=== PATIENT | male | born 1995 | race Caucasian/White ===

== ENCOUNTER 2025-01-09 08:16 | Outpatient (AMB) | payer OTHER, SELFPAY ==
--- OUTSIDE RECORDS SUMMARY | 2025-01-09 09:05 | XMS_ITS | Clinical Summary ---
Author Organization [facility] Address [address] [place] [id number] Care Team Providers Care Statistical Reporting Analyst Name Role Phone Unavailable Primary Care Provider Unavailabl e Social History Tobacco Use Types Packs/Day Years Used Date Smoking Tobacco: Never Assessed Sex and Gender Information Value Date Recorded Sex Assigned at Not on file Gender Identity Not on file Sexual Orientation Not on file Plan of Treatment Health Maintenance Due Date Last Done Comments Hepatitis B Vaccines (1 of 3 - 3-dose series) 1994 Hepatitis C Screening 1994 COVID-19 Vaccine (#1) 01/16/1995 Depression Screening 2006 Preventative Health Evaluation 2012 DTap / Tdap / Td (1 - Tdap) 2013 Influenza Vaccine (#1) 2025 Pneumococcal Vaccine Aged Out No long er eligible based on patient's age to complete this topic RSV Ped < 20 months Aged Out No longe r eligible based on patient's age to complete this topic Advance Directives For more information, please contact: [phone] Documents on File Type Date Recorded Patient Rn Trauma Expl anation Advance Directive and Living Will 01/11/2018 11:30 AM
--- OUTSIDE RECORDS SUMMARY | 2025-01-09 09:05 | XMS_ITS | Clinical Summary ---
Author Organization [facility] ity Address [id number] [place] [id number] Care Team Providers Care Surgery Manager Name Role Phone Unavailable Primary Care Provider Unavailabl e Social History Tobacco Use Types Packs/Day Years Used Date Smoking Tobacco: Never Assessed Sex and Gender Information Value Date Recorded Sex Assigned at Not on file Legal Sex Male 10:50 PM EST Gender Identity Not on file Sexual Orientation Not on file Plan of Treatment Health Maintenance Due Date Last Done Comments DTaP,Tdap,and Td Vaccines (1 - Tdap) 2013 Hepatitis B Vaccines (1 of 3 - 19+ 3-dose series) 2013 Depression Screening 05/04/2024 COVID-19 Vaccine (1 - 2023-2 5 season) 2025 Influenza Vaccine (#1) 2025 HIB Vaccines Aged Out No longer eligi ble based on patient's age to complete this topic HPV Vaccines Aged Out No longer eligi ble based on patient's age to complete this topic Hepatitis A Vaccines Aged Out No long er eligible based on patient's age to complete this topic IPV Vaccines Aged Out No longer eligi ble based on patient's age to complete this topic MMR Vaccines Aged Out No longer eligi ble based on patient's age to complete this topic Meningococcal ACWY Vaccine Aged Out N o longer eligible based on patient's age to complete this topic Meningococcal B Vaccine Aged Out No l onger eligible based on patient's age to complete this topic Pneumococcal Vaccine: Pediat rics (0 to 5 Years) and At-Risk Patients (6 to 49 Years) Aged Out No longer eligible b ased on patient's age to complete this topic RSV Immunization Patients Un glen 20 months Aged Out No longer eligible b ased on patient's age to complete this topic Varicella Vaccines Aged Out No longer eligible based on patient's age to complete this topic
--- NOTE | 2025-01-09 12:29 | MHC.OFFVISWM ---
VS Expanded 01/09/25 12:40 Height 5 ft 8 in Weight 289 lb BMI 43.9 Body Fat % 40.4 Body Fat Mass 116.6 Fat Free Mass 172.2 Visceral Fat Rating 22 Body Water % 42.7 Body Water Mass 123.4 Basal Metabolic Rate/Score 2,442 Intake Visit Reasons: [employer] BMI 43.9 Allergies No Known Allergies Allergy (Verified 01/09/25 12:29) Medication List - Last Reconciled 01/09/25 by Jordin Donaldson MD venlafaxine ER 75 mg PO DAILY HPI HPI TV [employer] SWL BMI 43.9: Details: Start time: 12.28pm, End time: 1.13pm ?I spent 40 minutes speaking with the patient on the phone plus an additional 5 minutes reviewing and updating records for a total of 45 minutes HPI Comments Details: Previous weight loss efforts: Semaglutide compound: developed serious side effects, Veirta through [facility] (lost 2lbs) Wakes up: 7am (work days), 12pm (weekends), Sleeps: 12am Breakfast: none Lunch: 1pm (fast food) Dinner: 6pm (meatloaf, burgers, steaks) Snacks: 10am (granola bar, meat stick), 4pm (chips), 8pm (Gold fish, chips) Exercise: has home treadmill with incline and track calories Beverages: Coffee: (1 cup/d, daily black), Tea: none, Soda: [place] occasionally, Juice: none, ETOH: Rum and diet coke 2-3/wk one shot PFSH Medical History (Updated 01/09/25 @ 12:32 by Jordin Donaldson MD) DJD (degenerative joint disease) Hyperlipidemia Anxiety Depression Morbid obesity Surgical History (Updated 01/04/25 @ 13:13 by Suzette Miranda CMA) Hx of tonsillectomy Family History (Updated 01/04/25 @ 11:45 by Suzette Miranda CMA) Mother Prediabetes Hypothyroid Father Hypertension Hyperdactyly Heart problem Obesity Social History (Updated 01/04/25 @ 11:45 by Suzette Miranda CMA) Alcohol intake: current Alcohol intake frequency: a few times a week Patient Tobacco Use Status: Never used Tobacco Telehealth Telehealth Telehealth Platform: Telephone Location of provider rendering services: practice address Location of patient: address on file Patient Identification confirmed using: Name, : Yes Telehealth method: voice only Patient verbally consented to treatment: Yes Patient verbally consented to billing insurance company: Yes Patient informed of any privacy concerns related to visit: Yes Minutes spent on Phone/Video with Pt.: 45 Assessment & Plan Assessment & Plan (1) Morbid obesity: Code(s): E66.01 - Morbid (severe) obesity due to excess calories Category: Medical Plan: 1.? Plan for lap sleeve gastrectomy. If diaphragmatic or ventral hernias are present at time of surgery, these will be repaired laparoscopically as well. I emphasized the importance of close follow-up, adherence to instructions and good communication. The surgery does not replace the need to change your lifestlyle which is the cause of the obesity problem. The surgery provides the motivation to try again to change your lifestyle, it reduces the appetite and make the transition to a better lifestyle easier and doubles the amount of weight you would lose compared to doing the lifestyle change without the surgery. You will need to be on a liquid diet with protein shakes for 2 weeks before surgery to maximize weight loss and boost your nutritional status to recover better from surgery and also for the first two weeks after surgery to let the stomach heal before we introduce other foods. After the first 2 weeks we will introduce protein bars and soft foods like scrambled eggs, cottage cheese and yogurt and after the 6th week will introduce meat, fish and cooked vegetables in small amounts. Over time you should be able to eat everything in small amounts. Side effects like nausea, vomiting, heartburn or abdominal pain are not common in the practice unless you are not following in the practice. This operation requires lifetime commitment to following in our practice and communication with me. You will much less weight and experience side effects if you don?t communicate or not following in the practice. Complications are rare and in our practice is about 1/10 of the national average. However, you can develop bleeding that may require transfusion (hasn?t happened for year in the practice), you may from complications (we did not have any deaths in the practice) and infections. Infections are usually a result of breakdown in communication or not understanding or following directions correctly. They are difficult to treat, they can happen during the first 6 weeks, they may require to be in the hospital for weeks or even months, not being able to eat by mouth and you may have drains and surgeries to try and correct the issue. Other risks and complications include possible conversion to an open procedure, leaks, small bowel obstruction, blood clots, cardiac, or pulmonary complications, as superintendent terminal complications such as ulcers, insufficient weight loss and vitamin deficiencies. 2. You will receive a link of our software joseph to generate an individualized nutritional and exercise plan specific for you. Please send me a screenshot of the plans you will generate Meal to include lean meat (beef, fish, pork, turkey, chicken), or estonian yogurt, or egg whites, or beans with a salad with olive oil and fruits (berries, pears, apples, kiwi). Avoid salt, breads, potatoes, rice, pasta, desserts. ?3. If you choose shakes, each shake would be drunk slowly, like coffee in a period of 2 hours. ?4. If you choose bars, cut each bar in 4 pieces and eat each piece in 30min ?to make each bar last 2 hours. ?5. I emphasized the importance of measuring accurately the food portion and measure it when serving the food in plate ?6. The meal portions include a specific number of forks of meat and salad. You always eat the meat portion but you can replace up to half of salad/vegetables portion with rice, potatoes or pasta, or a fruit ?if you like. The less you do it the better weight loss will be. ?7. One full-size fork is what it can be scooped on the fork without falling aside and not what can be bit with the fork. Use regular forks like those you find in a typical restaurant. ?8.? Please buy the body composition scale we discussed and send me weight measurements as soon as possible and then once a week. Always include your diet and exercise plan. 9. The best exercise choice would be to use your treadmill at home that can track calories. You can create and exercise plan with the [employer] joseph. ?11. Goal is to lose at least 1.5-2lbs per week ?12. Goal to lose 10% of your weight before surgery, which is about 30lbs. Ultimate weight goal: 260lbs before surgery 13. Please follow the diet plan exactly without any change. If you don't like something about the plan or you feel hungry you need to communicate with me so I can help you revise the plan. You should not change the plan yourself. 14. To be scheduled for EGD to assess the stomach?s anatomy. The possibility of biopsies was discussed. Patient needs to avoid use of NSAIDs and aspirin for 1 week prior to EGD. You must be on liquids only the day before your endoscopy. Risks of perforation and bleeding was discussed with the patient. This will be an outpatient procedure with IV sedation. 15. Please do the following test: Check your heart rate at rest (at your sleep). Walk for exactly one mile distance as fast as you can and check your heart rate again as soon as you complete the mile walk. Text me the heart rate at rest and after the walk and the time in minutes and seconds that took you to complete the mile walk. You can use your smartphone's stopwatch to track accurately the time it took to walk the mile. Orders: Orders Insulin Today E66.01 - Morbid (severe) obesity due to excess calories, E78.5 - Hyperlipidemia, unspecified Hemoglobin A1c Today E66.01 - Morbid (severe) obesity due to excess calories, E78.5 - Hyperlipidemia, unspecified H Pylori Breath Test Today E66.01 - Morbid (severe) obesity due to excess calories, E78.5 - Hyperlipidemia, unspecified Complete Blood Count Auto Diff Today E66.01 - Morbid (severe) obesity due to excess calories, E78.5 - Hyperlipidemia, unspecified Vitamin B12 and Folate Today E66.01 - Morbid (severe) obesity due to excess calories, E78.5 - Hyperlipidemia, unspecified Vitamin B1 Today E66.01 - Morbid (severe) obesity due to excess calories, E78.5 - Hyperlipidemia, unspecified Vitamin A Today E66.01 - Morbid (severe) obesity due to excess calories, E78.5 - Hyperlipidemia, unspecified TSH reflex Free T4 Today E66.01 - Morbid (severe) obesity due to excess calories, E78.5 - Hyperlipidemia, unspecified XR chest 2V Today E66.01 - Morbid (severe) obesity due to excess calories, E78.5 - Hyperlipidemia, unspecified ECG 12 lead EKG Today E66.01 - Morbid (severe) obesity due to excess calories, E78.5 - Hyperlipidemia, unspecified Lipid Panel Today E66.01 - Morbid (severe) obesity due to excess calories, E78.5 - Hyperlipidemia, unspecified IRON PROFILE Today E66.01 - Morbid (severe) obesity due to excess calories, E78.5 - Hyperlipidemia, unspecified Comprehensive Met. Panel Today E66.01 - Morbid (severe) obesity due to excess calories, E78.5 - Hyperlipidemia, unspecified Zinc Today E66.01 - Morbid (severe) obesity due to excess calories, E78.5 - Hyperlipidemia, unspecified C Reactive Protein Today E66.01 - Morbid (severe) obesity due to excess calories, E78.5 - Hyperlipidemia, unspecified Ferritin Today E66.01 - Morbid (severe) obesity due to excess calories, E78.5 - Hyperlipidemia, unspecified Vitamin D 25-OH Total Today E66.01 - Morbid (severe) obesity due to excess calories, E78.5 - Hyperlipidemia, unspecified US abdomen comp w elastography Today E66.01 - Morbid (severe) obesity due to excess calories, E78.5 - Hyperlipidemia, unspecified FL upper GI w air Today E66.01 - Morbid (severe) obesity due to excess calories, E78.5 - Hyperlipidemia, unspecified Referrals Behavioral Health Referral E66.01 - Morbid (severe) obesity due to excess calories, E78.5 - Hyperlipidemia, unspecified Nutrition/Dietitian Referral E66.01 - Morbid (severe) obesity due to excess calories, E78.5 - Hyperlipidemia, unspecified
[2025-01-09 12:40] VITALS: BMI 43.9
== END 2025-01-09 13:13 | disposition home or self-care (01) ==
LOC: HO.HBS 08:16
PROVIDERS: PCP Internal Medicine; Visit Provider Surgery
DX: E66.01 Morbid (severe) obesity due to excess calories (principal)
CPT/HCPCS: 99204

== ENCOUNTER 2025-01-18 11:52 | Outpatient (REF) | payer OTHER, SELFPAY ==
--- NOTE | ~2025-01-18 | XR_ITS ---
EXAMINATION: XR CHEST CLINICAL INFORMATION: E66.01 - Morbid (severe) obesity due to excess calories COMPARISON: None available. TECHNIQUE: PA and lateral views FINDINGS: No consolidation, pleural effusion or pneumothorax. No hyperinflation. Cardiomediastinal silhouette size is normal. Osseous structures are intact. XR/XR chest 2V IMPRESSION: No acute airspace disease. Electronically signed by: Jr Garcia MD 01/18/2025 12:39 PM EDT
--- NOTE | 2025-01-18 11:57 | ECG_ITS ---
Test Reason : E66.01 Blood Pressure : */* mmHG Vent. Rate : 84 BPM Atrial Rate : 84 BPM P-R Int : 150 ms QRS Dur : 98 ms QT Int : 360 ms P-R-T Axes : 22 -2 34 degrees QTcB Int : 425 ms Normal sinus rhythm Normal ECG No previous ECGs available Referred By: Jordin Donaldson Electronically Signed By: CATARINA DOUGLAS
[2025-01-18 12:22] LABS: MANUAL DIFF FLAG NO
[2025-01-18 12:41] LABS: Hemoglobin A1C 129.3797 umol/L; Total Hemoglobin (HGBA1C) 4164.1587 umol/L
[2025-01-18 12:56] LABS: Hematocrit 47.4 % (42.0-52.0); Hemoglobin 16.3 g/dl (14.0-18.0); Imm Gran Abs Auto 0.02 X10*3/uL (0.00-0.03); Imm Gran Pct Auto 0.4 % (0.0-0.4); Lymphocytes Absolute Auto 2.5 X10*3/uL (1.2-4.9); Mean Corpuscular HGB Conc 34.4 g/dl (31.0-36.0); Mean Corpuscular Hemoglobin 29.6 pg (27.0-33.0); Mean Corpuscular Volume 86.2 fL (80.0-98.0); NRBC Abs Auto 0.000 X10*3/uL (0.0-0.012); NRBC Pct Auto 0.0 /100WBC (0.0-0.2); Platelet Count 220 X10*3/uL (160-400); Red Blood Count 5.50 X10*6/uL (4.60-5.80); White Blood Count 5.7 X10*3/uL (4.8-10.8)
[2025-01-18 13:15] LABS: Alanine Aminotransferase 27 U/L (0-40); Albumin Level 4.7 g/dL (3.5-5.0); Alkaline Phosphatase 66 U/L (39-117); Anion Gap 13 (12-20); Aspartate Amino Transferase 29 U/L (5-37); Blood Urea Nitrogen 22 mg/dL (9-16); Calcium 9.4 mg/dL (8.4-10.2); Carbon Dioxide 23 mmol/L (22-29); Chloride 107 mmol/L (96-108); Cholesterol 249 mg/dL (<200); Estimated Glomerular Filt Rate > 60; HDL Cholesterol 36 mg/dL (>40); Iron 106 mcg/dL (45-160); Percent Iron Saturation 42 % (15-50); Potassium 4.1 mmol/L (3.3-5.1); Sodium 139 mmol/L (135-145); Total Iron Binding Capacity 252 mcg/dL (228-428); Total Protein 7.7 g/dL (6.5-8.0); Triglycerides 105 mg/dL (<150); Unsaturated Iron Binding 146 ug/dL
[2025-01-18 13:30] LABS: Ferritin 348 ng/mL (20-250)
[2025-01-18 13:44] LABS: Folate 10.9 ng/mL (> or = 4.0); Vitamin B12 400 pg/mL (200-900)
--- OUTSIDE RECORDS SUMMARY | 2025-01-18 15:24 | XMS_ITS | Clinical Summary ---
Author Organization [facility] Address [address] [place] [id number] Care Team Providers Care Gristmiller Name Role Phone Unavailable Primary Care Provider [...] Advance Directives For more information, please contact: [phone] Documents on File Type Date Recorded Patient Shipping Team Leader Expl anation Advance Directive and Living Will 01/11/2018 11:30 AM
== END 2025-01-18 11:53 | disposition home or self-care (01) ==
LOC: HO.LAB 11:52
PROVIDERS: PCP Internal Medicine; Visit Provider Surgery
DX: Z13.1 Encounter for screening for diabetes mellitus (principal); E78.5 Hyperlipidemia, unspecified; E66.01 Morbid (severe) obesity due to excess calories; Z13.0 Encounter for screening for diseases of the blood and blood-forming organs and certain disorders involving the immune mechanism
CPT/HCPCS: 36415; 71046; 80053; 80061; 82306; 82607; 82728; 82746; 83036; 83525; 83540; 84425; 84443; 84590; 84630; 85025; 86140; 93005

== ENCOUNTER → 2025-01-18 11:57 | Outpatient (BNV) | payer OTHER, SELFPAY | PROVIDERS: PCP Internal Medicine; Visit Provider Internal Medicine | DX: E66.01 Morbid (severe) obesity due to excess calories (principal) | CPT/HCPCS: 93010 ==

== ENCOUNTER → 2025-01-18 12:29 | Outpatient (BNV) | payer OTHER, SELFPAY | PROVIDERS: PCP Internal Medicine; Visit Provider Radiology Diagnostic Radiology | DX: E66.01 Morbid (severe) obesity due to excess calories (principal) | CPT/HCPCS: 71046 ==

== ENCOUNTER 2025-02-01 11:47 | Outpatient (AMB) | payer OTHER, SELFPAY ==
--- NOTE | 2025-02-01 12:00 | A.OFFWM_ITS ---
Intake Intake Visit Reasons: OV BH Intake Allergies No Known Allergies Allergy (Verified 01/09/25 12:29) PFSH Medical History (Updated 01/25/25 @ 18:40 by Jordin Donaldson MD) Vitamin B1 deficiency Vitamin D deficiency DJD (degenerative joint disease) Hyperlipidemia Anxiety Depression Morbid obesity Surgical History (Updated 01/04/25 @ 13:13 by Suzette Miranda CMA) Hx of tonsillectomy Family History (Updated 01/04/25 @ 11:45 by Suzette Miranda CMA) Mother Prediabetes Hypothyroid Father Hypertension Hyperdactyly Heart problem Obesity Social History (Updated 01/04/25 @ 11:45 by Suzette Miranda CMA) Alcohol intake: current Alcohol intake frequency: a few times a week Patient Tobacco Use Status: Never used Tobacco Behavioral Health Assessment Weight Management Therapy Therapy Notes Details PT is a 29 years old male, who presents for a visit to complete BH assessment as part of surgical weight loss program. Presenting Concerns Referral Source WMP-Provider. Reason for referral Completion of behavioral health assessment as part of process for weight-loss surgery. Precipitating Event Obesity Living Situation Current Living Situation Relative's/Guardian's Markus At risk of losing current housing? No Comments PT lives with his parents. Food/Weight/Diet Expectations of change PT started the program on 01/09/25 at 289Lbs and the initial goal is to 10% of his weight before surgery, which is about 30lbs. Ultimate weight goal: 260lbs before surgery Most recent weight 276Lbs on 01/31/25. PT is implementing the following: Current meal plan: Combination of shakes, bars and 1 meal at day. Exercise plan: 3 days at week, treadmill also goes tot he gym. scale: yes Communication w/ provider: Wednesdays. History/Relationship with food Patient reports enjoying food and has a longstanding history of consuming large portion sizes. He notes a tendency to engage in mindless snacking, particularly while playing video games. He denies engaging in stress-related or emotional eating behaviors. Example of meals before starting the program: Breakfast: Coffee and couple egg bites. Lunch: 1pm (fast food) Dinner: 6pm (meatloaf, burgers, steaks) Snacks: 10am (granola bar, meat stick), 4pm (chips), 8pm (Gold fish, chips) Beverages: Coffee: (1 cup/d, daily black), Tea: none, Soda: [place] occasionally, Juice: none, ETOH: Rum and diet coke 2-3/wk one shot History/Relationship with weight Patient reports a lifelong history of being overweight and notes that obesity is prevalent in his family, with multiple relatives classified as morbidly obese. He recalls weighing 210 lbs during high school. Over the past 10 years, his weight has fluctuated, with a lowest recorded weight of 250 lbs and a peak of 304 lbs a few months ago. History/Relationship with dieting Gym membership. self-diets, Ketto diets, meal prep. Usually fall off after couple months. Semaglutide (side effects), lost a few Lbs. Binge Eating Do you frequently eat large amounts of food in short periods of time, not feeling physically hungry? Yes Do you feel out of control when you eat a large amount of food in a short period of time? No Do you eat large amounts of food rapidly and typically alone? Yes Night Eating Do you wake up at least once during the night to eat? No If you wake up in the night, do you find that it is necessary to eat something in order to fall back asleep? No Do you have little or no appetite in the morning and feel very hungry in the evening, often overeating between dinner and when you go to bed? Yes Social History Family history and relationship Pt is single and have no children Parents alive, 1 brother. Good family relationships. 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 Developmental history and status IEP in school. Currently [facility]. Social support some friends, co-workers Community support therapist, met monthly. Buddhism/Spirituality None. Cultural/Ethnic information . Legal Involvement and History Current or historical involvement with the legal system? None reported. Education Highest grade completed HS. Some college. 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 Preferred learning style Learn by doing Currently enrolled in educational program? No Interested in further educational program? 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 No Meaningful activities D&D games, 3D printing, video games. Financial Situation Describe current financial situation Comfortable and Occasional struggle Financial assistance? None Service Service? No Mental Health and Addiction Treatment Current/Past substance abuse? No Comments Alcohol: 2x week, 1 mixed drink. Cigarettes/Tobacco: None. Cannabis/Edibles: None Current/Past addictive behavior concerns? No Psychiatric history PT has been attending counseling 5-6 years ago, currently attending on a monthly basis. PT sees TODD Abbasi at [facility] in [place], [place]. And his PCP prescribes him with Venlafaxine 75mg 1 at day. 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 PT denies ever been hospitalized or in a MH crisis. No history of safety concerns arpund SI/SA, self-harm, other harm. Medical and Physical Health Summary Additional Medical History not covered in history None aditional Sexual History concerns None reported. Physical exam in the last year? Yes Pain Screening Current pain? No Pain in the last few months? Yes Comments Knee pain. Medications Is the patient compliant with medications? Yes Does the patient have Osborne Guardian in place? Not applicable Does the patient use complimentary health approaches? No Trauma/Abuse History History of trauma? No Questionnaires PHQ-9 Over the last 2 weeks, how often have you been bothered by any of the following problems? 1. Little interest or pleasure in doing things: not at all 2. Feeling down, depressed, or hopeless: not at all 3. Trouble falling or staying asleep, or sleeping too much: several days 4. Feeling tired or having little energy: not at all 5. Poor appetite or overeating: not at all 6. Feeling bad about yourself - or that you are a failure or have let yourself or your family down: not at all 7. Trouble concentrating on things, such as reading the newspaper or watching television: several days 8. Moving or speaking so slowly that other people could have noticed. Or the opposite - being so fidgety or restless that you have been moving around a lot more than usual: not at all 9. Thoughts that you would be better off or of hurting yourself in some way: not at all Total score: 2 Depression Screening Interpretation: Negative (Scores in new PT pack: 6.) Depression Screening Done: Yes 82203 - PHQ-9 Billing: Yes Source: Developed by Drs. Jayson Suggs, Yesenia Parson, Rufus Dobbins and colleagues, with an educational jude from [employer] Binge Eating Scale Group 1 A. I don't feel self-conscious about my wt. or body size when I'm with others. B. I feel concerned about how I look to others, but it normally does not make me fell disappointed with myself C. I do get self-conscious about my appearance and wt. which makes me feel disappointed in myself. D. I feel very self-conscious about my wt. and frequently I feel intense shame and disgust for myself. I try to avoid social contacts because of my self- consciousness. Response Group 1: C Group 2 A. I don't have any difficulty eating slowly in the proper manner. B. Although I seem to gobble down foods, I don't end up feeling stuffed because of eating to much. C. At times, I tend to eat quickly and then, I feel uncomfortably full afterwards. D. I have the habit of bolting down my food, without really chewing it. When this happens I usually feel uncomfortably stuffed because I've eaten to much. Response Group 2: B Group 3 A. I feel capable to control my eating urges when I want to. B. I feel like I have failed to control my eating more than the average person. C. I feel utterly helpless when it comes to feeling in control of my eating urges. D. Because I feel so helpless about controlling my eating I have become very desperate about trying to get control. Response Group 3: B Group 4 A. I don't have the habit of eating when I'm bored. B. I sometimes eat when I'm bored, but often I'm able to get busy and get my mind off food. C. I have a regular habit of eating when I'm bored, but occasionally, I can use some other activity to get my mind off eating. D. I have a strong habit of eating when I'm bored. Nothing seems to help me breath the habit. Response Group 4: B Group 5 A. I'm usually physically hungry when I eat something. B. Occasionally, I eat something on impulse even though I really am not hungry. C. I have the regular habit of eating foods, that I might not really enjoy, to satisfy a hungry feeling even though physically, I don't need the food. D. Although I'm not physically hungry, I get a hungry feeling in my mouth that only seems to be satisfied when I eat a food, like sandwich, that fills my mouth. Sometimes, when I eat the food to satisfy my mouth hunger, I then spit the food out so I won't gain weight. Response Group 5: B Group 6 A. I don't feel any guilt or self-hate after I overeat. B. After I overeat, occasionally I feel guilt or self-hate. C. Almost all the time I experience strong guilt or self-hate after I overeat. Response Group 6: B Group 7 A. I don't lose total control of my eating when dieting even after periods when I overeat. B. Sometimes when I eat a forbidden food on a diet, I feel like I blew it and eat even more. C. Frequently, I have the habit of saying to myself, I've blown it now, why not go all the way, when I overeat on a diet. When that happens I eat more. D. I have a regular habit of starting a strict diets for myself but I break the diets by going on an eating binge. My life seems to be either a feast or famine. Response Group 7: B Group 8 A. I rarely eat so much food that I feel uncomfortably stuffed afterwards. B. Usually about once a month, I each such a quantity of food, I end up feeling very stuffed. C. I have regular periods during the month when I eat large amounts of food, either at mealtime or at snacks. D. I eat so much food that I regularly feel quite uncomfortable after eating and sometimes a bit nauseous. Response Group 8: B Group 9 A. My level of calorie intake does not go up very high or go down very low on a regular basis. B. Sometimes after I overeat, I will try to reduce my caloric intake to almost nothing to compensate for the excess calories I've eaten. C. I have a regular habit of overeating during the night. It seems that my routine is not to be hungry in the morning but overeat in the evening. D. In my adult years, I have had week-long periods where I practically starve myself. This follows periods when I overeat. It seems I live a life of either feast or famine. Response Group 9: A Group 10 A. I usually am able to stop eating when I want to. I know when enough is enough. B. Every so often, I experience a compulsion to eat which I can't seem to control. C. Frequently, I experience strong urges to eat which I seem unable to control, but at other times I can control my eating urges. D. I feel incapable of controlling urges to eat. I have a fear of not being able to stop eating voluntarily. Response Group 10: B Group 11 A. I don't have any problem stopping eating when I feel full. B. I usually can stop eating when I feel full but occasionally overeat leaving me feeling uncomfortably stuffed. C. I have a problem stopping eating once I start and usually I feel uncomfortably stuffed after I eat a meal. D. Because I have a problem not being able to stop eating when I want, I sometimes have to induce vomiting to relieve my stuffed feeling. Response Group 11: B Group 12 A. I seem to eat just as much when I'm with others, Family social gatherings as when I'm by myself. B. Sometimes, when I'm with other persons, I don't eat as much as I want to eat because I'm self-conscious about my eating. C. Frequently, I eat only a small amount of food when others are present, because I'm very embarrassed about my eating. D. I feel so ashamed about overeating that I pick times to overeat when I know no one will see me. I feel like a closet eater. Response Group 12: A Group 13 A. I eat three meals a day with only an occasional between meal snack. B. I eat 3 meals a day, but I also normally snack between meals. C. When I am snacking heavily, I get in the habit of skipping regular meals. D. There are regular periods when I seem to be continually eating, with no planned meals. Response Group 13: B Group 14 A. I don't think much about trying to control unwanted eating urges. B. At least some of the time, I feel my thoughts are pre-occupied with trying to control my eating urges. C. I feel that frequently I spend much time thinking about how much I ate or about trying not to eat anymore. D. It seems to me that most of my waking hours are pre-occupied by thoughts about eating or not eating. I feel like I'm constantly struggling not to eat. Response Group 14: B Group 15 A. I don't think about food a great deal. B. I have strong craving for food but they last only for brief periods of time. C. I have days when I can't seem to think about anything else but food. D. Most of my days seem to be pre-occupied with thoughts about food. I feel like I live to eat. Response Group 15: B Group 16 A. I usually know whether or not I'm physically hungry. I take the right portion of food to satisfy me. B. Occasionally, I feel uncertain about knowing whether or not I'm physically hungry. A these times it's hard to know how much food I should take to satisfy me. C. Even though I might know how many calories I should eat, I don't have any idea what is a normal amount of food for me. Response Group 16: B Binge Eating Score: 15 Score less than 17 Minimal Risk Score between 18-26 Moderate Risk Score between 27-46 High Risk Assessment & Plan Assessment & Plan (1) Generalized anxiety disorder: Code(s): F41.1 - Generalized anxiety disorder (2) Pre-bariatric surgery psychological evaluation: Code(s): Z71.89 - Other specified counseling Plan Following a comprehensive behavioral health assessment?including review of the Binge Eating Scale, PHQ-9, mental status evaluation, and patient self-report?th ere are currently no behavioral health contraindications to proceeding with bariatric surgery. The patient demonstrates appropriate insight, motivation, and psychological readiness for the procedure. No active psychiatric symptoms or maladaptive eating behaviors were identified that would impede surgical outcomes at this time. The patient is cleared from a behavioral health perspective to proceed with bariatric surgery and documentation can be submitted for insurance approval as indicated. PT will return for a follow-up behavioral health visit 1?4 weeks postoperatively to monitor psychological adjustment, reinforce coping strategies, and screen for any emerging concerns such as mood changes, adjustment difficulties, or disordered eating patterns. Additional behavioral health support will be provided as needed based on postoperative assessment. Next joseph: 1-4 weeks PO. Coding Level of Care Code New Pt Psy Diag Eval (29443) Patient Type New Diagnoses Generalized anxiety disorder F41.1 Pre-bariatric surgery psychological evaluation Z71.89 Additional Codes PHQ-9 - 50276 - PHQ-9 Billing: Yes ([id number]) Time Spent (min) 60
--- OUTSIDE RECORDS SUMMARY | 2025-02-01 13:23 | XMS_ITS | Clinical Summary ---
Author Organization [facility] Address [address] [place] [id number] Care Team Providers Care Epitaxial Reactor Technician Name Role Phone Unavailable Primary Care Provider [...] Advance Directives For more information, please contact: [phone] Documents on File Type Date Recorded Patient Campus Recruiting Coordinator Expl anation Advance Directive and Living Will 01/11/2018 11:30 AM
--- OUTSIDE RECORDS SUMMARY | 2025-02-01 13:23 | XMS_ITS | Clinical Summary ---
Author Organization [facility] Address [id number] [place] [id number] Care Team Providers Care Earth Science Technician Name Role Phone Unavailable Primary Care [...] of 3 - 19+ 3-dose series) 2013 HPV Vaccines (1 - 3-dose SCD M series) 2021 Depression Screening 05/04/2024 COVID-19 Vaccine (1 - 2023-2 5 season) 2025 Influenza Vaccine (#1) 2025 RSV Immunization Adult Patie nts (1 - 1-dose 75+ series) 2069 HIB Vaccines Aged Out No longer eligi [...]
== END 2025-02-01 13:02 | disposition home or self-care (01) ==
LOC: HO.HBST 11:48
PROVIDERS: PCP Internal Medicine; Visit Provider Counselor Mental Health
DX: F41.1 Generalized anxiety disorder (principal); Z71.89 Other specified counseling
CPT/HCPCS: 90791

== ENCOUNTER 2025-02-20 09:11 | Day surgery (SDC) | payer OTHER, SELFPAY ==
--- OUTSIDE RECORDS SUMMARY | 2025-01-16 11:20 | XMS_ITS | Clinical Summary ---
Author Organization [facility] ity Address [address] [place] [phone] Care Team Providers Care Keel Press Operator Name Role Phone Unavailable Primary Care Provider [...]
--- OUTSIDE RECORDS SUMMARY | 2025-01-16 11:20 | XMS_ITS | Clinical Summary ---
Author Organization [facility] Address [address] [place] [id number] Care Team Providers Care Lead Advisor Name Role Phone Unavailable Primary Care Provider [...] Advance Directives For more information, please contact: [phone] Documents on File Type Date Recorded Patient Doctorate Of Chiropractic Expl anation Advance Directive and Living Will 01/11/2018 11:30 AM
--- NOTE | 2025-02-14 10:15 | HO.ANESPROP2 ---
Documented by User: Candice Otero NP 02/14/25 10:16 HPI - Anesthesia Eval Consult details Narrative: 29yo M for Upper Endoscopy [facility] Active Problems Active Problems: All Active Problems Vitamin B1 deficiency (Acute) Vitamin D deficiency (Acute) DJD (degenerative joint disease) (Acute) Hyperlipidemia (Acute) Anxiety (Acute) Depression (Acute) Morbid obesity (Acute) Past Medical History Medical History Vitamin B1 deficiency Vitamin D deficiency DJD (degenerative joint disease) Hyperlipidemia Anxiety Depression Morbid obesity Family History Family History Mother Prediabetes Hypothyroid Father Hypertension Hyperdactyly Heart problem Obesity Surgical History Surgical History Hx of tonsillectomy Social History Social History Are you a primary home care music therapist to a significant other at home: No Do you presently have visiting nurse or other home services: No Alcohol intake: current Alcohol intake frequency: a few times a week Patient Tobacco Use Status: Never used Tobacco Have you been hit, kicked, punched, or otherwise hurt by someone within the past year? If so, by whom?: No Are you DNR?: No Advance Directives: No Advance Directives Information Provided: Yes Poor oral hygiene: No Meds Allergies Allergy/AdvReac Type Severity Reaction Status Date / Time No Known Allergies Allergy Verified 02/20/25 10:04 Home Medications ?Medication ?Instructions ?Recorded ?Confirmed ?Last Taken ?Type venlafaxine 75 mg capsule,extended 75 mg PO DAILY 01/04/25 02/14/25 Unknown History release 24 hr Assessment and Plan Assessment Anesthesia Assessment: Chart Reviewed Documented by User: Carmina Chong MD 02/20/25 10:32 PMFSH Past Medical History Medical History Vitamin B1 deficiency Vitamin D deficiency DJD (degenerative joint disease) Hyperlipidemia Anxiety Depression Morbid obesity Family History Family History Mother Prediabetes Hypothyroid Father Hypertension Hyperdactyly Heart problem Obesity Family history of problems with anesthesia: No Surgical History Surgical History Hx of tonsillectomy History of Problems with Anesthesia: No Social History Social History Are you a primary home care music therapist to a significant other at home: No Do you presently have visiting nurse or other home services: No Alcohol intake: current Alcohol intake frequency: a few times a week Patient Tobacco Use Status: Never used Tobacco Have you been hit, kicked, punched, or otherwise hurt by someone within the past year? If so, by whom?: No Are you DNR?: No Advance Directives: No Advance Directives Information Provided: Yes Poor oral hygiene: No Meds Allergies Allergy/AdvReac Type Severity Reaction Status Date / Time No Known Allergies Allergy Verified 02/20/25 10:04 Home Medications ?Medication ?Instructions ?Recorded ?Confirmed ?Last Taken ?Type venlafaxine 75 mg capsule,extended 75 mg PO DAILY 01/04/25 02/14/25 Unknown History release 24 hr Exam Airway Mallampati Class: III TM Dist: >3cm Neck ROM: Full Loose/Missing/Broken Teeth: No Heart: RRR Lungs: CTA Assessment and Plan Assessment Anesthesia Assessment: Anesthesia Plan Discussed Final Anesthetic Review Family History of Problems with Anesthesia: No History of Problems with Anesthesia: No NPO: Yes ASA Class: III Final Preanesthetic Review: Meds/Allgs Chart Reviewed, Consent Obtained/Reviewed and Anes Risks/Benef Reviewed Patient Risk: Intermediate Procedure Risk: Intermediate Anesthetic Plan Anesthetic Plan: MAC: Disposition: Standard PACU
[2025-02-14 11:14] VITALS: BMI 43.9
[2025-02-20] MEDS: Lactated Ringers 1,000 ML 100 ML IVCONT (09:53)
[2025-02-20 10:01] VITALS: BMI 41.6
[2025-02-20 10:02] VITALS: BP 131/85; PULSE 87; RESP 18; TEMP 36.6; O2SAT 96
--- NOTE | 2025-02-20 10:25 | MHC.SHP ---
Pre-Procedural Eval Section A - 24 Hr Update-Section A only Date of Service: 02/20/25 The patient is an INPATIENT: No The patient has been examined within 24 hours of the surgical procedure. The History & Physical has been completed within 30 days and I have reviewed it.: Yes Section B - Complete if H&P > 30 days Chief Complaint: Morbid (severe) obesity due to excess calories Relevant Family History (Specify if Yes): No Relevant Social History: None Present Medications: None Medical History: No relevant PMH History of Previous Operations: No relevant previous surgery Allergies: Allergies Allergy/AdvReac Type Severity Reaction Status Date / Time No Known Allergies Allergy Verified 02/20/25 10:04 Review of Systems Sugical H&P ROS: Negative: Constitution, Cardiovascular, Respiratory, Neurological, Psychiatric, Hem-Onc, Allergic/Immunologic, Gastrointestinal, Genitourinary, Musculoskeletal, Integumentary, Endocrine and Eyes/Ears/Nose/Throat Exam Surgical H&P Exam: Normal: HEENT, Normal: Heart, Normal: Lungs, Normal: Extremities, Normal: Abdomen, Normal: Skin and Normal: Neurological Plan Diagnosis/Plan: Unchanged (EGD to assess the stomach's anatomy. Risks of bleeding and perforation were discussed with the patient and he is in agreement with the plan.) I have reviewed the history and physical and performed a pertinent physical examination on my patient. No changes have occurred unless specified. Time Spent With Patient Time: Total time managing care of this patient today ____ minutes.
--- NOTE | 2025-02-20 10:30 | P.BOP_ITS ---
Brief Operative Note Date of Service: 02/20/25 Pre-op diagnosis: Morbid obesity Post-op diagnosis: same Procedure: PROCEDURE DATE: 02/20/2025 PREOPERATIVE DIAGNOSIS: Morbid obesity POSTOPERATIVE DIAGNOSIS: ?Same as above. Normal endoscopy PROCEDURE: Bdkqhvuw-yjvhea-srkdbnwjjloy with biopsies Surgeon: Alis Donaldson M.D.. Ph.D. Site Auditor: None ? Anesthesia: IV sedation Estimated blood loss: ?Minimal FINDINGS AND PROCEDURE: ? OPERATIVE INDICATIONS: ?The patient is a 29 year old male known to me who is interested in bariatric surgery. Based on this information I recommended an upper endoscopy to evaluate the patient's symptoms. Risks and complications of the surgery were discussed with the patient in advance particularly the possibility of perforation or bleeding that may require surgical intervention. The patient understood the risks and was in agreement with the plan. ? PROCEDURE: After informed consent was obtained by the patient, the patient was ?transferred to the Operating Room and was placed in the supine position.? After successful induction of IV sedation, a mouth block was inserted and the patient was placed in the left lateral decubitus position. An upper endoscopy was performed next, the oropharynx and esophagus appeared within the normal limits. There was no hiatal hernia. The z-line was smooth. Two biopsies were obtained from the distal esophagus 2-3 cm proximal to the GE junction and two additional biopsies from the GE junction. The stomach was entered and it appeared to be of normal size. There was no gastritis. There was no stricture or ulcer. A biopsy was obtained from the gastric fundus and the antrum. No significant bleeding was noted from any of the biopsy sites. Retroflexion of the scope confirmed the presence of a normal GE junction. The scope was then advanced into the duodenum which appeared to be normal as well. At that point the duodenum ?and the stomach were decompressed and the scope was withdrawn from the patient's mouth. The patient extubated and was transferred in stable condition to the Recovery Room for further care. I was present and performed all steps of the procedure. There were no residents to assist with this case. Pb Donaldson M.D., Ph.D. Surgeon: Jordin Donaldson MD Anesthesia: MAC Was an Site Auditor used for this Procedure?: No Estimated blood loss (mL): 0 IV fluids (mL): 400 Urine output (mL): 0 (No Valladares to record output) Pathology: other (1) antrum x1, 2) fundus x1, 3) GE junction x2, 4) distal esophagus x2) Condition: stable Disposition: PACU
[2025-02-20 10:57] VITALS: BP 124/83; PULSE 85; RESP 18; TEMP 36.2; O2SAT 99
[2025-02-20 11:19] VITALS: BP 134/92; PULSE 91; RESP 18; TEMP 36.2; O2SAT 97
== END 2025-02-20 13:00 | disposition home or self-care (01) ==
PROVIDERS: PCP Internal Medicine; Visit Provider Surgery
PROC: 0DJ08ZZ Inspection of Upper Intestinal Tract, Via Natural or Artificial Opening Endoscopic (ICD-10-PCS; CPT 43235; principal; 2025-02-20 11:00)
DX: E66.01 Morbid (severe) obesity due to excess calories (principal); Z68.41 Body mass index [BMI] 40.0-44.9, adult; E78.5 Hyperlipidemia, unspecified; M19.90 Unspecified osteoarthritis, unspecified site; F32.A Depression, unspecified; F41.9 Anxiety disorder, unspecified; Z79.899 Other long term (current) drug therapy
CPT/HCPCS: 43239; 88305; 88313; 88342; J2003; J2250; J2704

== ENCOUNTER → 2025-02-20 09:11 | Outpatient (BNV) | payer OTHER, SELFPAY | PROVIDERS: PCP Internal Medicine; Visit Provider Surgery | DX: E66.01 Morbid (severe) obesity due to excess calories (principal); Z68.41 Body mass index [BMI] 40.0-44.9, adult | CPT/HCPCS: 43239 ==

== ENCOUNTER 2025-03-13 08:09 | Outpatient (AMB) | payer OTHER, SELFPAY ==
--- OUTSIDE RECORDS SUMMARY | 2025-03-13 08:30 | XMS_ITS | Clinical Summary ---
Author Organization [facility] Address [address] [place] [id number] Care Team Providers Care Driver Trainer Name Role Phone Unavailable Primary Care Provider [...] Advance Directives For more information, please contact: [phone] Documents on File Type Date Recorded Patient Student Counsellor Expl anation Advance Directive and Living Will 01/11/2018 11:30 AM
--- OUTSIDE RECORDS SUMMARY | 2025-03-13 08:30 | XMS_ITS | Clinical Summary ---
Author Organization [facility] Address [address] [place] [id number] Care Team Providers Care Tank Systems Maintainer Name Role Phone Unavailable Primary Care Provider [...]
--- NOTE | 2025-03-13 11:00 | MHC.OFFVISWM ---
VS Expanded 03/13/25 11:06 Height 5 ft 8 in Weight 257 lb 2 oz BMI 39.1 Body Fat % 40.2 Body Fat Mass 103.4 Fat Free Mass 153.8 Visceral Fat Rating 21 Body Water % 43.2 Body Water Mass 111.1 Basal Metabolic Rate/Score 1,879 Intake Visit Reasons: TV Pre Op LSG 03/28/25 Allergies No Known Allergies Allergy (Verified 03/13/25 11:00) Medication List - Last Reconciled 03/13/25 by Jordin Donaldson MD cholecalciferol (vitamin D3) 125 mcg PO DAILY ondansetron 4 mg PO Q12H pantoprazole 40 mg PO DAILY polyethylene glycol 3350 17 grams PO DAILY sucralfate 10 mL PO BID thiamine HCl (vitamin B1) 100 mg PO DAILY venlafaxine ER 75 mg PO DAILY HPI HPI TV Pre Op LSG 03/28/25: Details: Start time: 8.50am, End time: 11.20am ?I spent 25 minutes speaking with the patient on the phone plus an additional 5 minutes reviewing and updating records for a total of 30 minutes HPI Comments Details: Overall weight loss: 2 HALF Fairlife protein shakes, 2.5 Fit Crunch protein bars and a meal (9 forks each) Exercise: treadmill x3-4/wk for 550-650 calories and elliptical 3/wk for 500 calories PFSH Medical History (Updated 03/13/25 @ 11:13 by Jordin Donaldson MD) BMI 39.0-39.9,adult Obesity Vitamin B1 deficiency Vitamin D deficiency DJD (degenerative joint disease) Hyperlipidemia Anxiety Depression Morbid obesity Surgical History Hx of tonsillectomy Family History Mother Prediabetes Hypothyroid Father Hypertension Hyperdactyly Heart problem Obesity Social History Are you a primary career center advisor to a significant other at home: No Do you presently have visiting nurse or other home services: No Alcohol intake: current Alcohol intake frequency: a few times a week Patient Tobacco Use Status: Never used Tobacco Telehealth Telehealth Telehealth Platform: Telephone Location of provider rendering services: practice address Location of patient: address on file Patient Identification confirmed using: Name, : Yes Telehealth method: voice only Patient verbally consented to treatment: Yes Patient verbally consented to billing insurance company: Yes Patient informed of any privacy concerns related to visit: Yes Minutes spent on Phone/Video with Pt.: 30 Assessment & Plan Assessment & Plan (1) Obesity: Code(s): E66.9 - Obesity, unspecified Category: Medical Qualifiers: Obesity type: due to excess calories Obesity classification: adult class 2 (BMI 35 - 39.9) Serious obesity comorbidity presence: without serious comorbidity Body mass index: BMI 39.0-39.9 Qualified Code(s): E66.09 - Other obesity due to excess calories; Z68.39 - Body mass index [BMI] 39.0-39.9, adult Plan: 1. Plan for lap sleeve gastrectomy including upper GI endoscopy. All tests has been completed and reviewed and the patient is cleared for the surgery. ?If diaphragmatic or ventral hernias are present at time of surgery, these will be repaired laparoscopically as well. Risks and complications were discussed in detail including possible conversion to an open procedure, anastomotic leak, bleeding requiring transfusion, small bowel obstruction, , DVT and pulmonary embolism, cardiac, or pulmonary complications, as care home complications such as anastomotic ulcer, insufficient weight loss and vitamin deficiencies. I emphasized the importance of close follow-up, adherence to instructions and good communication. So far he has proven to be an excellent communicator and very compliant with all our directions accomplishing a great weight loss. I believe that he is an excellent candidate and he is ready. 2. Preop prescriptions were provided and explained the purpose of each one. Need to be purchased preop. Start Pantoprazole now as you get it from the pharmacy, 1 pill per day. Sucralfate and Zofran are for after surgery as needed. 3. Bowel prep: please do 7 packets ?of Miralax mixing each one with a an 8oz glass of water, crystal light, gatorade zero, or propel ?on 03/26/25 and the same amount on 03/27/25. The Miralax you begin with one packet at a time in 8oz water or crystal light, gatorade zero, or propel ?as early in the day as you can and you do them back to back until you finish them. Continue the protein shakes during ?the bowel prep. 4. Needs to purchase 1oz medicine cups . 5. Needs to purchase Children's liquid Tylenol for postop pain control. 6. Avoid aspirin, motrin, Advil, Aleve, Meloxicam, Excedrin, Ibuprofen, Naproxyn. Tylenol is OK. 7. She needs to purchase the Celebrate multivitamins from the hospital's gift shop, chewable or pills whatever you prefer. 8. Will do basic preop blood work-up any day between Thursday03/20/25 and Thursday03/28/25 fasting for 12 hours and is scheduled to see the Anesthesiologist prior to the day of surgery. 9. Importance of adherence to postop folllow-up and recommendations was underscored and he understands that. 10. Stop food and bars as of Thursday03/20/25 and continue with 4 Fairlife protein shakes (8oz and NOT the whole bottle) at 9am-11am, 12pm-2pm, 3pm-5pm, 6pm-8pm and one more WHOLE BOTTLE Fairlife protein shake at 9pm-11pm 11. No soups, broths or V8 12. The patient's?medical?history has been reviewed and they are considered low risk for post op DVT and therefore DVT prophylaxis is not considered necessary. Travel after surgery was reviewed. The patient has not disclosed any travel plans during the first 30 days after surgery and they have been advised that within the first 30 days after surgery any bus, plane, train or car travel over 2 hours in duration is contraindicated due to the possibility of developing blood clots from immobility. Any travel, needs to include periods of ambulation of 10 minutes in duration every 2 hours.? Patient was instructed to discuss any plans for travel during this period with their bariatric surgeon.? 13. Please take at the day of surgery the following medications: NONE 14. Stop any control pills and don't use them for one month after surgery 15. Absolutely no smoking or vaping, or marijuana until the surgery and for at least the first 4 weeks. Only nicotine patches are allowed. 16. Send me weight measurements on Thursday03/15/25 and 03/22/25 and then on Thursday03/28/25, the day of surgery before you go to the hospital. 17. Avoid any steroids by mouth for any reason. Let me know if someone prescribes them to you 18. These instructions supersede anything else you read in the handbook, anything you watched in videos or classes or you were told by any other provider. If there is any conflict, you follow the above instructions and nothing else. Orders: Orders Insulin Today E66.9 - Obesity, unspecified, Z68.39 - Body mass index [BMI] 39.0-39.9, adult Complete Blood Count Auto Diff Today E66.9 - Obesity, unspecified, Z68.39 - Body mass index [BMI] 39.0-39.9, adult C Reactive Protein Today E66.9 - Obesity, unspecified, Z68.39 - Body mass index [BMI] 39.0-39.9, adult Lipid Panel Today E66.9 - Obesity, unspecified, Z68.39 - Body mass index [BMI] 39.0-39.9, adult Hemoglobin A1c Today E66.9 - Obesity, unspecified, Z68.39 - Body mass index [BMI] 39.0-39.9, adult Comprehensive Met. Panel Today E66.9 - Obesity, unspecified, Z68.39 - Body mass index [BMI] 39.0-39.9, adult Type and Screen Today E66.9 - Obesity, unspecified, Z68.39 - Body mass index [BMI] 39.0-39.9, adult TSH reflex Free T4 Today E66.9 - Obesity, unspecified, Z68.39 - Body mass index [BMI] 39.0-39.9, adult Partial Thromboplastin Time Today E66.9 - Obesity, unspecified, Z68.39 - Body mass index [BMI] 39.0-39.9, adult Prothrombin Time INR Today E66.9 - Obesity, unspecified, Z68.39 - Body mass index [BMI] 39.0-39.9, adult Medications: New pantoprazole 40 mg PO DAILY 90 tabs 0RF K21.9 - Gastro-esophageal reflux disease without esophagitis sucralfate 10 mL PO BID 600 mL 2RF K21.9 - Gastro-esophageal reflux disease without esophagitis ondansetron Only take one every 12 hours as needed if you have nausea 4 mg PO Q12H 20 tabs 0RF nausea and vomiting R11.0 - Nausea polyethylene glycol 3350 Mix each measuring cup with 8oz of water, Crystal light, or Gatorade zero, or Propel and do 7 measuring cups on 03/26/25 and another 7 measuring cups on 03/27/25 17 grams PO DAILY 238 grams 0RF Z01.818 - Encounter for other preprocedural examination
[2025-03-13 11:06] VITALS: BMI 39.1
== END 2025-03-13 11:20 | disposition home or self-care (01) ==
LOC: HO.HBS 08:09
PROVIDERS: PCP Internal Medicine; Visit Provider Surgery
DX: E66.09 Other obesity due to excess calories (principal); Z68.39 Body mass index [BMI] 39.0-39.9, adult
CPT/HCPCS: 99214

== ENCOUNTER 2025-03-15 09:01 | Outpatient (REF) | payer OTHER, SELFPAY ==
--- NOTE | ~2025-03-15 | US_ITS ---
EXAMINATION: US COMPLETE ABDOMEN WITH LIVER ELASTOGRAPHY CLINICAL INFORMATION: Obesity COMPARISON: None available. TECHNIQUE: Real-time imaging of the abdominal viscera. Noninvasive ultrasound liver fibrosis assessment is performed using Gopi ElastPQ point quantification shear wave elastography (pSWE) with a C5-2 MHz transducer. Multiple elastography samples are obtained. FINDINGS: PANCREAS: The visualized pancreatic head and body are normal in appearance. The remainder of the pancreas is obscured from visualization by the overlying bowel gas. ABDOMINAL AORTA: No aortic aneurysm is seen. INFERIOR VENA CAVA: Visualized portions are normal. LIVER: The liver demonstrates normal size, contour. Mildly increased echogenicity.. No focal lesion or intrahepatic biliary duct dilatation. The right lobe measures 15 cm in length. The left lobe measures 7.9 cm in length. Portal flow is hepatopedal Shear wave liver elastography median stiffness is 1.73 m/s (reference: normal median stiffness is 1.3 m/s or less). IQR/median stiffness to assess sampling precision is 0.2 (reference: good quality data set is IQR/median stiffness of 0.15 or less). GALLBLADDER: The gallbladder is physiologically distended without evidence of stones, sludge, polyps, wall thickening or pericholecystic fluid. COMMON BILE DUCT: Normal in caliber measuring 0.3 cm in diameter. RIGHT KIDNEY: No hydronephrosis. No renal calculi or focal parenchymal lesions. The kidney measures 11.4 cm in maximum dimension. LEFT KIDNEY: No hydronephrosis. No renal calculi or focal parenchymal lesions. The kidney measures 10.7 cm in maximum dimension. SPLEEN: Unremarkable. The spleen measures 10.8 cm in maximum dimension. FREE FLUID: None seen. US/US abdomen comp w elastography IMPRESSION: 1. There is generalized increase in hepatic echotexture, consistent with fatty infiltration or hepatocellular disease. Please correlate clinically. No focal hepatic mass or intrahepatic biliary duct dilatation is seen. 2. Liver elastography: Median stiffness measures 1.73 m/s . *Liver Stiffness 1.7-2.1 m/s: Borderline measurement, could suggest compensated advanced chronic liver disease but need further test for confirmation. Society of Radiologists in Ultrasound Liver Stiffness Thresholds (2020): LIVER STIFFNESS THRESHOLDS: *Liver Stiffness equal or less than 1.3 m/s: High probability of being normal. *Liver Stiffness less than 1.7 m/s: In the absence of other known clinical signs, rules out compensated advanced chronic liver disease. *Liver Stiffness 1.7-2.1 m/s: Suggestive of compensated advanced chronic liver disease but need further test for confirmation. *Liver Stiffness over 2.1 m/s: Rules in compensated advanced chronic liver disease. *Liver Stiffness over 2.4 m/s: Suggestive of clinically significant portal hypertension. QUALITY OF DATA SET: *IQR/Median value equal or less than 0.15 implies a quality data set. *IQR/Median value over 0.15 implies a poor quality data set. SIGNIFICANT CHANGE FROM PRIOR EXAM: Significant change if liver stiffness measurement is 10% or greater from prior exam. OTHER CONSIDERATIONS: The stage of liver fibrosis may be overestimated in the setting of acute hepatitis, liver inflammation, elevated liver function tests, hepatic vascular congestion, obstructive cholestasis, non-fasting state, and infiltrative diseases such as amyloidosis and lymphoma. In some patients with NAFLD, the liver stiffness thresholds for compensated advanced chronic liver disease may be lower. In causes other than viral hepatitis and NAFLD, liver stiffness thresholds are not well established. Electronically signed by: Zeke Gee MD 03/16/2025 09:36 AM [facility]
--- OUTSIDE RECORDS SUMMARY | 2025-03-15 09:36 | XMS_ITS | Clinical Summary ---
Author Organization [facility] Address [id number] [id number] Care Team Providers Care It Program Engagement Director Name Role Phone Unavailable Primary Care Provider [...] Depression Screening 05/04/2024 COVID-19 Vaccine (1 - 2024-2 6 season) 2025 Influenza Vaccine (#1) 2025 RSV [...]
--- OUTSIDE RECORDS SUMMARY | 2025-03-15 09:36 | XMS_ITS | Clinical Summary ---
Author Organization [facility] Address [address] [place] [id number] Care Team Providers Care Clean Room Assembler Name Role Phone Unavailable Primary Care Provider [...] Advance Directives For more information, please contact: [phone] Documents on File Type Date Recorded Patient Aquatics Director Expl anation Advance Directive and Living Will 01/11/2018 11:30 AM
== END 2025-03-15 09:02 | disposition home or self-care (01) ==
LOC: HO.US 09:01
PROVIDERS: PCP Internal Medicine; Visit Provider Surgery
DX: E66.01 Morbid (severe) obesity due to excess calories (principal); E78.5 Hyperlipidemia, unspecified
CPT/HCPCS: 76700; 76981

== ENCOUNTER → 2025-03-15 09:03 | Outpatient (BNV) | payer OTHER, SELFPAY | PROVIDERS: PCP Internal Medicine; Visit Provider Radiology Diagnostic Ultrasound | DX: E66.01 Morbid (severe) obesity due to excess calories (principal); Z68.39 Body mass index [BMI] 39.0-39.9, adult | CPT/HCPCS: 76700 ==

== ENCOUNTER 2025-03-20 08:47 | Outpatient (REF) | payer OTHER, SELFPAY ==
[2025-03-20 09:25] LABS: MANUAL DIFF FLAG NO
[2025-03-20 09:56] LABS: INTERNATIONAL NORM RATIO 1.0 (0.9-1.1); Prothrombin Time 12.6 SEC (11.2-13.5)
[2025-03-20 09:59] LABS: Partial Thromboplastin Time 30.8 SEC (26.7-34.1)
[2025-03-20 10:00] LABS: Hematocrit 46.8 % (42.0-52.0); Hemoglobin 15.8 g/dl (14.0-18.0); Imm Gran Abs Auto 0.01 X10*3/uL (0.00-0.03); Imm Gran Pct Auto 0.2 % (0.0-0.4); Lymphocytes Absolute Auto 1.7 X10*3/uL (1.2-4.9); Mean Corpuscular HGB Conc 33.8 g/dl (31.0-36.0); Mean Corpuscular Hemoglobin 29.9 pg (27.0-33.0); Mean Corpuscular Volume 88.6 fL (80.0-98.0); NRBC Abs Auto 0.000 X10*3/uL (0.0-0.012); NRBC Pct Auto 0.0 /100WBC (0.0-0.2); Platelet Count 213 X10*3/uL (160-400); Red Blood Count 5.28 X10*6/uL (4.60-5.80); White Blood Count 5.0 X10*3/uL (4.8-10.8)
[2025-03-20 10:28] LABS: Alanine Aminotransferase 25 U/L (0-40); Albumin Level 4.6 g/dL (3.5-5.0); Alkaline Phosphatase 72 U/L (39-117); Anion Gap 12 (12-20); Aspartate Amino Transferase 25 U/L (5-37); Blood Urea Nitrogen 22 mg/dL (9-16); Calcium 9.5 mg/dL (8.4-10.2); Carbon Dioxide 25 mmol/L (22-29); Chloride 107 mmol/L (96-108); Cholesterol 184 mg/dL (<200); Estimated Glomerular Filt Rate > 60; HDL Cholesterol 35 mg/dL (>40); Potassium 3.8 mmol/L (3.3-5.1); Sodium 140 mmol/L (135-145); Total Protein 7.3 g/dL (6.5-8.0); Triglycerides 119 mg/dL (<150)
--- OUTSIDE RECORDS SUMMARY | 2025-03-20 15:57 | XMS_ITS | Clinical Summary ---
Author Organization [facility] Address [address] [place] [id number] Care Team Providers Care Floatman Name Role Phone Unavailable Primary Care Provider [...]
== END 2025-03-20 08:48 | disposition home or self-care (01) ==
LOC: HO.LAB 08:47
PROVIDERS: Absent Provider Surgery; PCP Internal Medicine; Visit Provider Physician Assistant Surgical
DX: E66.9 Obesity, unspecified (principal); Z68.39 Body mass index [BMI] 39.0-39.9, adult; Z51.81 Encounter for therapeutic drug level monitoring; Z13.29 Encounter for screening for other suspected endocrine disorder; Z13.1 Encounter for screening for diabetes mellitus
CPT/HCPCS: 36415; 80053; 80061; 83036; 83525; 84443; 85025; 85610; 85730; 86140

== ENCOUNTER 2025-03-28 06:51 | Day surgery (SDC) | payer OTHER, SELFPAY ==
[2025-03-15 10:37] VITALS: BMI 39.1
[2025-03-28] VITALS (13 sets, daily range): BP systolic 113–149; BP diastolic 60–99; PULSE 93–105; RESP 16–20; TEMP 36.4–36.9; O2SAT 94–100; BMI 37.3
[2025-03-28] MEDS: Aprepitant 32 MG/4.4 ML VIAL IVPUSH (07:46)
[2025-03-28] MEDS: Lactated Ringers 1,000 ML 999 ML IV (07:46)
--- NOTE | 2025-03-28 08:31 | HO.ANESPROP2 ---
Documented by User: Candice Otero NP 03/23/25 12:32 HPI - Anesthesia Eval Consult details Narrative: 29yo M for Gastrectomy Sleeve,EGD,possible Diaphragmatic Hernia,possible Ventral Hernia,possible Open BMI 39 PMFSH Active Problems Active Problems: All Active Problems BMI 39.0-39.9,adult (Acute) Obesity (Acute) Vitamin B1 deficiency (Acute) Vitamin D deficiency (Acute) DJD (degenerative joint disease) (Acute) Hyperlipidemia (Acute) Anxiety (Acute) Depression (Acute) Morbid obesity (Acute) Past Medical History Medical History (Updated 03/13/25 @ 11:13 by Jordin Donaldson MD) BMI 39.0-39.9,adult Obesity Vitamin B1 deficiency Vitamin D deficiency DJD (degenerative joint disease) Hyperlipidemia Anxiety Depression Morbid obesity Family History Family History Mother Prediabetes Hypothyroid Father Hypertension Hyperdactyly Heart problem Obesity Family history of problems with anesthesia: No Surgical History Surgical History (Updated 03/15/25 @ 10:17 by Radha Hobbs RN) History of esophagogastroduodenoscopy (EGD) Hx of tonsillectomy History of Problems with Anesthesia: No Social History Social History Are you a primary acute care registered nurse to a significant other at home: No Do you presently have visiting nurse or other home services: No Alcohol intake: current Alcohol intake frequency: a few times a month Patient Tobacco Use Status: Never used Tobacco Use of substances other than those prescribed or required for medical reasons: No Have you been hit, kicked, punched, or otherwise hurt by someone within the past year? If so, by whom?: No Are you DNR?: No Advance Directives: No Advance Directives Information Provided: Yes Advance Directives on File: No Meds Allergies Allergy/AdvReac Type Severity Reaction Status Date / Time No Known Allergies Allergy Verified 03/13/25 11:00 Home Medications ?Medication ?Instructions ?Recorded ?Confirmed ?Last Taken ?Type venlafaxine 75 mg capsule,extended 75 mg PO DAILY 01/04/25 03/15/25 03/27/25 History release 24 hr Exam Height,Weight and Vital Signs: Height 5 ft 8 in Weight 116.573 kg Pertinent Lab Results Pertinent Lab Results: Laboratory Tests 03/20/25 09:20 Blood Type A Positive Antibody Screen NEGATIVE Laboratory Tests 03/20/25 09:24 WBC 5.0 Hgb 15.8 Hct 46.8 Plt Count 213 Sodium 140 Potassium 3.8 Chloride 107 Carbon Dioxide 25 BUN 22 H Creatinine 0.83 Narrative Narrative: EKG 01/2025 Vent. Rate : 84 BPM Atrial Rate : 84 BPM P-R Int : 150 ms QRS Dur : 98 ms QT Int : 360 ms P-R-T Axes : 22 -2 34 degrees QTcB Int : 425 ms Normal sinus rhythm Normal ECG No previous ECGs available Assessment and Plan Assessment Anesthesia Assessment: Chart Reviewed Final Anesthetic Review Family History of Problems with Anesthesia: No History of Problems with Anesthesia: No Documented by User: Kathy Hector DO 03/28/25 08:33 [facility] Past Medical History Medical History (Updated 03/13/25 @ 11:13 by Jordin Donaldson MD) BMI 39.0-39.9,adult Obesity Vitamin B1 deficiency Vitamin D deficiency DJD (degenerative joint disease) Hyperlipidemia Anxiety Depression Morbid obesity Family History Family History Mother Prediabetes Hypothyroid Father Hypertension Hyperdactyly Heart problem Obesity Family history of problems with anesthesia: No Surgical History Surgical History (Updated 03/15/25 @ 10:17 by Radha Hobbs RN) History of esophagogastroduodenoscopy (EGD) Hx of tonsillectomy History of Problems with Anesthesia: No Social History Social History Are you a primary acute care registered nurse to a significant other at home: No Do you presently have visiting nurse or other home services: No Alcohol intake: current Alcohol intake frequency: a few times a month Patient Tobacco Use Status: Never used Tobacco Use of substances other than those prescribed or required for medical reasons: No Have you been hit, kicked, punched, or otherwise hurt by someone within the past year? If so, by whom?: No Are you DNR?: No Advance Directives: No Advance Directives Information Provided: Yes Advance Directives on File: No Meds Allergies Allergy/AdvReac Type Severity Reaction Status Date / Time No Known Allergies Allergy Verified 03/13/25 11:00 Home Medications ?Medication ?Instructions ?Recorded ?Confirmed ?Last Taken ?Type venlafaxine 75 mg capsule,extended 75 mg PO DAILY 01/04/25 03/15/25 03/27/25 History release 24 hr Exam Exam Date and Time: 03/28/25 0830 Height,Weight and Vital Signs: Height 5 ft 8 in Weight 116.573 kg Vital Signs Temperature 98.5 F 03/28/25 07:52 Pulse Rate 93 03/28/25 07:52 Respiratory Rate 20 03/28/25 07:52 Blood Pressure 131/87 03/28/25 07:52 Pulse Oximetry 96 03/28/25 07:52 Oxygen Delivery Method Room Air 03/28/25 07:52 Temperature 98.5 F 03/28/25 07:52 Pulse Rate 93 03/28/25 07:52 Respiratory Rate 20 03/28/25 07:52 Blood Pressure 131/87 03/28/25 07:52 Pulse Oximetry 96 03/28/25 07:52 Oxygen Delivery Method Room Air 03/28/25 07:52 Airway Mallampati Class: II TM Dist: >3cm Neck ROM: Full Loose/Missing/Broken Teeth: No (patient denies any loose or broken teeth) Heart: S1S2 Lungs: CTAB Assessment and Plan Assessment Anesthesia Assessment: Anesthesia Plan Discussed and Chart Reviewed Final Anesthetic Review Family History of Problems with Anesthesia: No History of Problems with Anesthesia: No NPO: Yes ASA Class: II Final Preanesthetic Review: No Changes in Pt Med Stat, Meds/Allgs Chart Reviewed, Consent Obtained/Reviewed and Anes Risks/Benef Reviewed Patient Risk: Low Procedure Risk: Intermediate Anesthetic Plan Anesthetic Plan: GA and Agree w/ Assess. and Plan Disposition: Standard PACU
--- NOTE | 2025-03-28 08:31 | MHC.SHP ---
Pre-Procedural Eval Section A - 24 Hr Update-Section A only Date of Service: 03/28/25 The patient is an INPATIENT: No The patient has been examined within 24 hours of the surgical procedure. The History & Physical has been completed within 30 days and I have reviewed it.: Yes Section B - Complete if H&P > 30 days Chief Complaint: obesity Relevant Family History (Specify if Yes): No Relevant Social History: None Present Medications: None Medical History: No relevant PMH History of Previous Operations: No relevant previous surgery Allergies: Allergies Allergy/AdvReac Type Severity Reaction Status Date / Time No Known Allergies Allergy Verified 03/13/25 11:00 Review of Systems Sugical H&P ROS: Negative: Constitution, Cardiovascular, Respiratory, Neurological, Psychiatric, Hem-Onc, Allergic/Immunologic, Gastrointestinal, Genitourinary, Musculoskeletal, Integumentary, Endocrine and Eyes/Ears/Nose/Throat Exam Surgical H&P Exam: Normal: HEENT, Normal: Heart, Normal: Lungs, Normal: Extremities, Normal: Abdomen, Normal: Skin and Normal: Neurological Plan Diagnosis/Plan: Unchanged I have reviewed the history and physical and performed a pertinent physical examination on my patient. No changes have occurred unless specified. Time Spent With Patient Time: Total time managing care of this patient today ____ minutes.
--- NOTE | 2025-03-28 08:36 | P.BOP_ITS ---
Brief Operative Note Date of Service: 03/28/25 Pre-op diagnosis: Severe obesity with comorbidities (see below) Post-op diagnosis: same (& extensive congenital abdominal adhesions) Procedure: INITIAL PATIENT BMI ON PRESENTATION AT OUR OFFICE: 43.3 kg/m2 LAST BMI BEFORE SURGERY: 38.4 kg/m2 COMORBIDITIES: Hyperlipidemia, depression, anxiety, liver steatosis, liver fibrosis ?The patient presented to the Weight Management Program with significant obesity that was negatively impacting the patient's comorbidities as listed above.? The program is a phased program with a special focus on preoperative medical weight management to promote substantial weight loss and prepare the patients for the second phase of the program: bariatric surgery. The patient participated in an intensive weekly lifestyle ?intervention and exercise program during which the patient ?has lost between the initial office visit and the last preoperative visit 38.4 lbs, or 13.3% of initial actual body weight. It was deemed appropriate for the patient to now have bariatric surgery. In light of the current Covid-19 pandemic and the well documented strong association of obesity and increased risk of worse outcomes if infected with Covid-19 (REFERENCES: https://pubmed.ncbi.nlm.nih.gov/44460206/ ,? https://pubmed.ncbi.nlm.nih.gov/01154948/ ), any delay in undergoing bariatric surgery may lead to the patient's worsening health condition and increased?risk of more severe Covid-19 disease if infected. In addition a recent?study from [facility] published in [employer] on 04/29/2021 ([email or web address]) found that, among patients with obesity, substantial weight loss achieved with surgery was associated with improved outcomes of COVID-19 infection. The findings suggest that obesity can be a modifiable risk factor for the severity of COVID-19 infection. In addition, the patient met the BMI-criteria for bariatric surgery based on the BMI on initial presentation. The patient should not be penalized for achieving such weight loss because ?it is not sustainable long-term without surgical intervention and it was achieved in preparation for bariatric surgery ?under my direction and based on my published research ([email or web address]).[email or web address] and? https://www.soard.org/article/[email or web address](61)24830-X/pdf ) ?that a 10% preoperative weight loss improves long-term weight loss after surgery and reduces perioperative complications.? Insurance carriers such as [facility] have endorsed my recommendations ?and have included in their policies criteria to include a 10% preoperative weight loss requirement. PROCEDURE: Esophago-gastroscopy, laparoscopic lysis of adhesions, laparoscopic sleeve gastrectomy and laparoscopic gastropexy INDICATIONS: This is a 29 year-old male who was electively scheduled for laparoscopic, possibly open sleeve gastrectomy. The risks and complications of the procedure were discussed with the patient in advance, particularly the possibility of ; pulmonary embolism; staple line leak; bleeding; GERD; cardiac, pulmonary, or renal complications; as well as long-term problems such as insufficient weight loss, vitamin deficiency, strictures, or ulcers. The patient understood all the risks, and was in agreement to proceed with surgery. DESCRIPTION OF PROCEDURE: After informed consent was obtained from the patient, the patient was given preoperative antibiotics, and was transferred to the operating room. After successful induction of general anesthesia, pneumatic compression devices were placed on both lower extremities. An upper endoscopy was performed next. The oropharynx and esophagus appeared to be within normal limits. There was no diaphragmatic hernia present. The stomach was entered. Then after all fluid and air were suctioned and the stomach was fully decompressed, the scope was withdrawn and secured in the mid esophagus. The patient was then prepped and draped in the usual sterile manner, and abdominal access was established at the right upper quadrant with the Darnell technique. A 12 mm blunt port was inserted, and the abdomen was insufflated with CO2 to a pressure of 15 mmHg. Under direct visualization, additional ports were placed, specifically two 5 mm Versi-step ports to the left upper quadrant, and a 5 mm Versi-Step port to the right upper quadrant. 1% lidocaine plain was used to infiltrate all port sites as well as all fascia defects. Following that, the patient was placed in a steep reverse Trendelenburg position. An additional 5 mm port was placed to the right flank for the Mediflex retractor that was used to retract the left lobe of the liver. The gastro-esophageal fat pad was opened with the ultrasonic device (Thunderbeat, Olympus) and the anterior esophagus and hiatus were exposed. The angle of His was opened with the ultrasonic device the fundus of the stomach from any diaphragmatic and splenic attachments. I then opened the gastrocolic ligament between the transverse colon and the greater curvature of the stomach with the ultrasonic device to enter the lesser sac and facilitate the ligation of the short gastric vessels. I started at a mid-point along the greater curvature and using the Thunderbeat, all short gastric vessels were divided all the way to the angle of His until the left adonis was completely dissected at its entirety. I then divided the gastro-colic ligament distally to a distance of about 3-4 cm proximal to the pylorus. The stomach was abnormally adherent to the anterior surface of the spleen, making the dissection extremely difficult and prolonging the procedure. ? PLEASE REVIEW BEFORE TO INCLUDE THIS SENTENCE There were extensive congenital adhesions between the pancreas and posterior gastric wall. Those were lysed completely with the ultrasonic device. Adhesiolysis took approximately 45 min to complete. The stomach was then divided transversely with three Endo SANJEEV-45 purple and three SANJEEV-60 articulating purple loads using the SIGNIA stapler and loads. Every effort was made that the gastric sleeve had a tubular shape and an even caliber throughout. Once the sleeve resection was completed, the staple line of the gastric sleeve was reinforced with Hemoclips. The resected stomach was retrieved without difficulty from the Darnell port. A gastropexy was then performed in order to prevent postoperative GERD and partial gastric volvulus. Several interrupted 2.0 Surgidac sutures were placed between the sleeve's staple line and the previously divided greater omentum and gastro-colic ligament using the Endo-Stitch device. ?An upper endoscopy was performed. There was no narrowing at the GE junction. The scope was easily advanced all the way to the pylorus which was clearly visualized. There was no narrowing anywhere and the sleeve's caliber was even throughout. The sleeve's staple line was inspected and there was no evidence of ischemia, bleeding or dehiscence. At that point the gastroscope was withdrawn from the patient?s mouth while we were decompressing the bowel and the stomach from any remaining air. I looked into the lesser sac to see how the sleeve was situating and it was situating well. There was no bleeding from the staple line, spleen, or short gastric vessels. The Mediflex retractor was removed, and the undersurface of the liver was inspected and there was no bleeding. The patient was placed in supine position. I closed the fascial defect of the 12 mm port site with a figure of eight #1 Polysorb suture. Then 30cc Ropivacaine plain with 10 mg of Dexamethasone were used to infiltrate the fascial closure as well as all skin incisions. At this point, the abdomen was deflated, all ports were removed under direct vision, and no bleeding was noted from any of the port sites. The skin incisions were irrigated with saline and were closed with 4-0 absorbable monofilament sutures. Steri-Strips and OpSites were used to cover all incisions. The patient was extubated and was transferred in stable condition to the recovery room for further care. I was present and performed all spicer parts of the procedure. Ms. Haynessachin was the editorial assistant. There were no residents to assist with this case. Pb Donaldson MD, PhD, FACS Surgeon: Jordin Donaldson MD Anesthesia: GETA, local and other (TAP block) Was an Manufacturers Representative used for this Procedure?: No Manufacturers Representative: Kiera Lainez Estimated blood loss (mL): 10 IV fluids (mL): 2,000 Urine output (mL): 0 (No Valladares to record output) Pathology: other (1) Stomach, 2) gastro-esophageal fat pad) Condition: stable Disposition: PACU
--- NOTE | 2025-03-28 08:39 | P.PNGS_ITS ---
Subjective Subjective Date of Service: 03/29/25 Interval history: Feels well. Mild incisional pain. He is tolerating phase 1 bariatric diet Physical Exam 2 Vital Signs: Vital Signs: Last Vital Signs Temp 98.5 F 03/28/25 07:52 Pulse 93 03/28/25 07:52 Resp 20 03/28/25 07:52 BP 131/87 03/28/25 07:52 Pulse Ox 96 03/28/25 07:52 O2 Del Method Room Air 03/28/25 07:52 BMI result Body Mass Index 37.3 GI: Inspection: Yes normal to inspection, Yes incision (clean, dry and intact) and Yes obesity Palpation (GI): Soft to palpation Extrem: Right lower extremity: normal to inspection (no calf tenderness) L eft lower extremity: normal to inspection (no calf tenderness) Objective Data Active Medications Haloperidol Lactate (Haloperidol Lactate 5 Mg/Ml Vial) 1 mg IVPUSH ONCE PRN PRN Reason: intractable nausea Stop: 03/28/25 14:33 Hydromorphone HCl (Hydromorphone Hcl 0.5 Mg/0.5 Ml Syringe) 0.5 mg IVPUSH Q5M PRN PRN Reason: Pain, Moderate to Severe (Pain Scale 4-10) Stop: 03/28/25 14:33 Lactated Ringer's (Lr) 1,000 mls @ 999 mls/hr IV .Q1H1M [facility] Stop: 03/28/25 09:15 Last Admin: 03/28/25 07:46 Dose: 999 mls/hr Documented By: GLORIA Lactated Ringer's (Lr) 1,000 mls @ 100 mls/hr IVCONT .Q10H [facility] Stop: 03/28/25 11:14 Naloxone HCl (Naloxone Hcl 0.4 Mg/Ml Vial) 0.04 mg IVPUSH Q5M PRN PRN Reason: Excessive sedation or RR < 8 Labs 03/29/25 05:31 03/29/25 05:31 Procedures Date of Service Date of Service: 03/29/25 Progress Note: A&P Assessment and plan (1) Obesity: Status: Acute Assessment and Plan: s/p laparoscopic sleeve gastrectomy, lysis of adhesions and gastropexy Doing well Will check am labs and if OK the patient will be discharged home (2) BMI 38.0-38.9,adult: Status: Acute (3) Depression: Status: Acute (4) Anxiety: Status: Acute (5) Hyperlipidemia: Status: Acute (6) DJD (degenerative joint disease): Status: Acute (7) Steatosis, liver: Status: Acute (8) Liver fibrosis: Status: Acute (9) S/P laparoscopic sleeve gastrectomy: Status: Acute (10) Congenital intra-abdominal adhesions: Status: Acute Time Spent With Patient Time: Total time managing care of this patient today ____ minutes. Quality Stroke Does the patient have a stroke diagnosis?: No VTE Prior VTE?: No VTE Risk Level:: Surgical - moderate VTE Device Contraindication: N/A - Device Ordered VTE Drug Contraindication: Treatment Not Indicated
--- NOTE | 2025-03-28 11:32 | P.DS_ITS ---
DS: Providers Provider Date of Service: 03/28/25 Date of discharge: 03/29/25 Primary care physician: Jose Rojas MD DS: Diagnosis Discharge Diagnosis (1) Obesity: Status: Acute (2) BMI 38.0-38.9,adult: Status: Acute (3) Depression: Status: Acute (4) Anxiety: Status: Acute (5) Hyperlipidemia: Status: Acute (6) DJD (degenerative joint disease): Status: Acute (7) Steatosis, liver: Status: Acute (8) Liver fibrosis: Status: Acute (9) S/P laparoscopic sleeve gastrectomy: Status: Acute (10) Congenital intra-abdominal adhesions: Status: Acute DS: Summary Hospital Course Hospital Course: ADMITTING DIAGNOSIS: morbid obesity DISCHARGE DIAGNOSIS: same, s/p laparoscopic sleeve gastrectomy and gastropexy PAST HISTORY:? Medical History BMI 39.0-39.9,adult Obesity Vitamin B1 deficiency Vitamin D deficiency DJD (degenerative joint disease) Hyperlipidemia Anxiety Depression Morbid obesity Surgical History Hx of tonsillectomy PROCEDURE: upper endoscopy, laparoscopic sleeve gastrectomy and gastropexy DISCHARGE SUMMARY: History of Present Illness: The patient is a? 29? year-old man with a BMI of? 37.3? kg/m2 and associated co- morbidities as described above. The patient had extensive work-up, lost? 43.2 lbs preoperatively and was electively scheduled for laparoscopic, possible open sleeve gastrectomy and gastropexy. Risks and complications of the surgery were discussed with the patient in advance, particularly the possibility of , pulmonary embolism, anastomotic leak, bleeding, bowel injury, GERD, cardiac, renal or pulmonary complications. The patient understood all the risks and was in agreement with the surgical plan. Hospital Course: The patient underwent an uneventful laparoscopic sleeve gastrectomy with gastropexy on the day of admission. Postoperatively, the patient was transferred to the surgical floor. The patient received IV Acetaminophen and IV dilaudid for pain control. Patient was started on bariatric phase 1 diet POD #0. On postoperative day one, the patient was feeling well without nausea, vomiting, fevers, or tachycardia. The patient had some mild incisional pain and the abdomen was soft.? On the morning of postoperative day one, the patient was continued on 1 ounce of water or ice every half hour. During the day, the patient did fairly well, having some incisional pain, but able to ambulate adequately and to tolerate liquids well. Since the patient is doing well, we decided that the patient was ready to be discharged. The patient was given instructions to follow-up with me next week and to call my office for any fever over 101, persistent abdominal pain, nausea, vomiting, GERD, symptoms of DVT such as calf tenderness, or leg swelling, or pulmonary embolism such as chest pain or shortness of breath.? The patient was also instructed to drink 40-60 ounces of liquids per day using the 1-ounce cups. The patient had been given prescriptions for Tylenol for pain, Zofran prn for nausea, and pantoprazole and carafate previously. The patient was encouraged to ambulate and use the incentive spirometer. The patient was allowed to shower, but no baths, and encouraged to stay active at home. All of these instructions were given to the patient personally. All questions were answered and the patient understood all instructions, the instructions were also given to the patient in print. Time Attestation Discharge Coordination Time (in mins): 30 Quality: Safe Use of Opioids Does Pt have an Active Cancer Diagnosis on the Problem List?: No Quality: Stroke Does the patient have a stroke diagnosis?: No Physical Exam Vital Signs: Vital Signs: Last Vital Signs Temp 98 F 03/28/25 11:20 Pulse 96 03/28/25 11:30 Resp 16 03/28/25 11:30 BP 136/94 H 03/28/25 11:30 Pulse Ox 100 03/28/25 11:30 O2 Del Method Simple Mask 03/28/25 11:30 O2 Flow Rate 8 03/28/25 11:30 BMI result Body Mass Index 37.3 DS: Data Data Completed and Pending Pending studies at discharge: Pending at discharge 03/28/25 10:39 Surgical [PTH] Routine Discharge Plan Discharge Patient Disposition: Home, Self-Care Referrals: Jose Rojas MD [Primary Care Provider, Internal Medicine] - 1 Week Discharge Medications: Continued pantoprazole 40 mg tablet,delayed release (DR/EC) 40 mg PO DAILY Qty: 90 0RF venlafaxine 75 mg capsule,extended release 24hr 75 mg PO DAILY sucralfate 100 mg/mL suspension 10 ml PO BID Qty: 600 2RF Patient Comments: postop med ondansetron 4 mg tablet,disintegrating 4 mg PO Q12H Qty: 20 0RF Patient Comments: postop med Rx Instructions: Only take one every 12 hours as needed if you have nausea Discontinued cholecalciferol (vitamin D3) 125 mcg (5,000 unit) capsule 125 mcg PO DAILY Qty: 90 0RF thiamine HCl (vitamin B1) 100 mg tablet 100 mg PO DAILY Qty: 90 0RF polyethylene glycol 3350 17 gram/dose powder 17 g PO DAILY Qty: 238 0RF Rx Instructions: Mix each measuring cup with 8oz of water, Crystal light, or Gatorade zero, or Propel and do 7 measuring cups on 03/26/25 and another 7 measuring cups on 03/27/25 Discharge Orders: Discharge Order (Routine); Ordered 03/29/25 Ordered By: Jordin Donaldson Activity on Discharge: No heavy lifting Activity Restrictions/Additional Instructions: Discharge Instructions: You may shower the day after discharge. No tub baths, sex or returning to work until discussed at first post op appointment. No alcohol, tobacco, or illegal drug use. Continue to use incentive spirometer hourly while awake. Walk in home for 5-10 minutes every 2 hours during the first week. Wear abdominal binder with activity. Activity: limit stair climbing, no bending, no heavy lifting, no driving, no exercise, no work. No lifting > 10 lbs x6 weeks post op. No driving within 24 hours of taking narcotic pain medications. Follow all meal plan instructions from your bariatric surgeon. Do not advance diet until approved by surgeon. Review bariatric handbook and call with any questions. If you do not move your bowels in the next 2 days, please take milk of magnesia over the counter. Dressing Change/Wound Care: Your incisions are covered with waterproof dressings. You can shower with these and pat dry. Do not rub over dressings or incisions. If the area is tender, you may apply an ice pack for short intervals (no more than 20 minutes on, followed by at least 20 minutes off). Do not apply heat. Do not use creams, lotions, or topical antibiotics unless instructed to do so by your surgeon. Do not hesitate to contact the office with any questions at or concerns such as: - Temperature exceeds 101.5 F, fevers, chills - Excessive pain or swelling, abdominal pain - Unexpected reaction to medication - Excessive bleeding - Continued vomiting/nausea - Incision begins to separate - Signs of infection such as increased redness, swelling, excessive pain, heat, or drainage (light blood or clear fluid is normal) - Shortness of breath - Chest pain - Leg pain or swelling - Return to ER for any emergent symptoms General instructions: Please walk around your home every 1-2hrs to prevent blood clots from forming in your legs. You do not need to wake from sleeping to walk. Please sleep in a bed or couch to prevent kinking at the hips and knees. Please take your incentive spirometer (your lung cranberry bog supervisor) home with you and use it for the next few days to prevent pneumonia. Please make sure you are consuming 40-60 ounces of total fluids per day. Avoid all carbonation. The patient's medical history has been reviewed and they are considered low risk for post op DVT and therefore DVT prophylaxis is not considered necessary. Travel after surgery was reviewed. The patient has not disclosed any travel plans during the first 30 days after surgery and they have been advised that within the first 30 days after surgery any bus, plane, train or car travel over 2 hours in duration is contraindicated due to the possibility of developing blood clots from immobility. Any travel, needs to include periods of ambulation of 10 minutes in duration every 2 hours.? The patient was instructed to discuss any plans for travel during this period with their bariatric surgeon. Follow up as scheduled in 1 week in office Print Language: Tajik Discharge Date/Time: 03/29/25 09:17
--- NOTE | 2025-03-28 11:52 | PHA.MEDREC ---
Pharmacy Consult ? Medication Reconciliation Pharmacy has reviewed the medication reconciliation done by nursing.
[2025-03-28 12:25] LABS: Hematocrit 48.0 % (42.0-52.0); Hemoglobin 16.7 g/dl (14.0-18.0)
[2025-03-28 12:30] LABS: Anion Gap 16 (12-20); Blood Urea Nitrogen 13 mg/dL (9-16); Calcium 9.1 mg/dL (8.4-10.2); Carbon Dioxide 22 mmol/L (22-29); Chloride 104 mmol/L (96-108); Creatinine Clr Calc Pharmacy 133.4; Estimated Glomerular Filt Rate > 60; Potassium 4.4 mmol/L (3.3-5.1); Sodium 138 mmol/L (135-145)
[2025-03-28] MEDS: Lactated Ringers 1,000 ML 100 ML IVCONT ×2 (12:32→22:18)
[2025-03-28] MEDS: 0.9 % Sodium Chloride Flush 3 ML SYRINGE IVFLUSH (20:16)
[2025-03-29 03:23] VITALS: BP 119/71; PULSE 89; RESP 16; TEMP 36.7; O2SAT 97
[2025-03-29 05:48] LABS: MANUAL DIFF FLAG NO
[2025-03-29 05:56] LABS: Hematocrit 43.1 % (42.0-52.0); Hemoglobin 14.9 g/dl (14.0-18.0); Imm Gran Abs Auto 0.05 X10*3/uL (0.00-0.03); Imm Gran Pct Auto 0.4 % (0.0-0.4); Lymphocytes Absolute Auto 1.7 X10*3/uL (1.2-4.9); Mean Corpuscular HGB Conc 34.6 g/dl (31.0-36.0); Mean Corpuscular Hemoglobin 30.0 pg (27.0-33.0); Mean Corpuscular Volume 86.7 fL (80.0-98.0); NRBC Abs Auto 0.000 X10*3/uL (0.0-0.012); NRBC Pct Auto 0.0 /100WBC (0.0-0.2); Platelet Count 210 X10*3/uL (160-400); Red Blood Count 4.97 X10*6/uL (4.60-5.80); White Blood Count 12.7 X10*3/uL (4.8-10.8)
[2025-03-29 06:09] LABS: Anion Gap 16 (12-20); Blood Urea Nitrogen 11 mg/dL (9-16); Calcium 9.1 mg/dL (8.4-10.2); Carbon Dioxide 20 mmol/L (22-29); Chloride 105 mmol/L (96-108); Creatinine Clr Calc Pharmacy 152.0; Estimated Glomerular Filt Rate > 60; Potassium 4.0 mmol/L (3.3-5.1); Sodium 137 mmol/L (135-145)
[2025-03-29 07:15] VITALS: BP 122/73; PULSE 93; RESP 16; TEMP 36.8; O2SAT 98
--- NOTE | 2025-03-29 08:23 | MHC.CM.PN ---
pt dcd home self care prior to being seen by cm
[2025-03-29] MEDS: Venlafaxine HCl ER 75 MG CAP.ER.24H PO (08:42)
--- NOTE | 2025-03-29 08:54 | HO.POSTANES ---
Post Anesthesia Evaluation Post Anesthesia Evaluation Date of Service: 03/29/25 Vital Signs: Vital Signs Temp Pulse Resp BP Pulse Ox O2 Del Method 03/29/25 07:15 98.3 F 93 16 122/73 98 Room Air 03/29/25 03:23 98.1 F 89 16 119/71 97 Room Air 03/28/25 23:32 98.1 F 105 H 16 117/71 96 Room Air Anesthesia: General Mental Status: Awake Pain Control: Satisfactory Nausea/Vomiting: None Hydration: Adequate Anesthesia-Related Issues: No Anes. Related Issues
== END 2025-03-29 09:17 | disposition home or self-care (01) ==
LOC: HO.SSS 11:27 → HO.S3 11:29
PROVIDERS: Nurse Practitioner; PCP Internal Medicine; Visit Provider Surgery
PROC: (CPT 43845; principal; 2025-03-28 08:40)
DX: E66.01 Morbid (severe) obesity due to excess calories (principal); Z68.39 Body mass index [BMI] 39.0-39.9, adult; Q43.3 Congenital malformations of intestinal fixation; Q45.3 Other congenital malformations of pancreas and pancreatic duct; K21.9 Gastro-esophageal reflux disease without esophagitis; R11.0 Nausea; K76.0 Fatty (change of) liver, not elsewhere classified; K74.00 Hepatic fibrosis, unspecified; E55.9 Vitamin D deficiency, unspecified; E53.8 Deficiency of other specified B group vitamins; E78.5 Hyperlipidemia, unspecified; F32.A Depression, unspecified; F41.9 Anxiety disorder, unspecified; M19.90 Unspecified osteoarthritis, unspecified site; Z79.899 Other long term (current) drug therapy
CPT/HCPCS: 43775; 43659; 49329; 36415; 80048; 85014; 85018; 85025; 86850; 86900; 86901; 88304; 88307; 88342; A4649; C9145; J0131; J0690; J1100; J1171; J1308; J2003; J2371; J2405; J2704; J2795; J3010; J7120

== ENCOUNTER → 2025-03-28 06:51 | Outpatient (BNV) | payer OTHER, SELFPAY | PROVIDERS: PCP Internal Medicine; Visit Provider Surgery | DX: E66.09 Other obesity due to excess calories (principal); Z68.38 Body mass index [BMI] 38.0-38.9, adult; Z98.84 Bariatric surgery status | CPT/HCPCS: 99024; 99499 ==

== ENCOUNTER 2025-04-04 14:52 | Outpatient (AMB) | payer OTHER, SELFPAY ==
--- NOTE | 2025-04-04 14:42 | A.OFFWM_ITS ---
Intake Intake Visit Reasons: VIDEO PO LSG 03/28/25 Allergies No Known Allergies Allergy (Verified 03/13/25 11:00) PFSH Medical History BMI 39.0-39.9,adult Obesity Vitamin B1 deficiency Vitamin D deficiency DJD (degenerative joint disease) Hyperlipidemia Anxiety Depression Morbid obesity Surgical History History of esophagogastroduodenoscopy (EGD) Hx of tonsillectomy Family History Mother Prediabetes Hypothyroid Father Hypertension Hyperdactyly Heart problem Obesity Social History Household Members: Family Housing: House Are you a primary home health aide caregiver to a significant other at home: No Do you presently have visiting nurse or other home services: No Alcohol intake: current Alcohol intake frequency: a few times a month Patient Tobacco Use Status: Never used Tobacco Behavioral Health Assessment Weight Management Therapy Therapy Notes Details Subjective: The patient underwent weight loss surgery on 02/25/2025. Her weight on the day of surgery was 248 lbs, with a current weight of 237 lbs as of today. He denies any pain or complications during her recovery and reports good tolerance of the prescribed liquid diet. The patient describes his mood as ?fine,? though he expresses eagerness to resume driving and increase his activity level. He reports strong family support, as he currently resides with his parents. PT notes that thoughts of hunger or food tend to arise later in the day, but overall, he is managing well. Objective: The patient presents for a behavioral health post-operative follow-up visit. A guided emotional check-in was conducted to assess her current functioning, recovery, mood, and emotional state. Psychoeducation was provided on the emotional and psychological adjustments commonly experienced after bariatric surgery. We also focused on distinguishing between hunger and cravings or food thoughts, exploring possible reasons for these experiences, and strategies to work on her mindset. Emphasis was placed on becoming mindful of her physical and mental needs during these times while staying on track. The importance of adhering to the Weight Management Program (WMP) providers' instructions was emphasized, including the pace of drinking and following the meal and exercise plan. Tips and recommendations for long-term success were also discussed. Program resources were provided, and the patient was invited to join our Facebook group to stay informed about ongoing events and activities. Assessment/Response: * Mental status: WNL * Risk reported/identified: None Assessment & Plan Assessment & Plan (1) Generalized anxiety disorder: Code(s): F41.1 - Generalized anxiety disorder Plan No safety concerns or issues were identified that would necessitate behavioral health monitoring. The patient declined further visits but is aware of the available behavioral health support if needed in the future. Telehealth Telehealth Telehealth Platform: [employer] Location of provider rendering services: other (Home office. [place], [place]) Location of patient: address on file Patient Identification confirmed using: Name, : Yes Telehealth method: video Patient verbally consented to treatment: Yes Patient verbally consented to billing insurance company: Yes Patient informed of any privacy concerns related to visit: Yes Minutes spent on Phone/Video with Pt.: 25 C[place] [address] Tele Psytx 30 mins Patient Type Established Diagnoses Generalized anxiety disorder F41.1 Time Spent (min) 25
--- OUTSIDE RECORDS SUMMARY | 2025-04-04 16:42 | XMS_ITS | Clinical Summary ---
Author Organization [facility] Address [id number] [place] [id number] Care Team Providers Care Chargemaster Analyst Name Role Phone Unavailable Primary Care [...]
--- OUTSIDE RECORDS SUMMARY | 2025-04-04 16:42 | XMS_ITS | Clinical Summary ---
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
== END 2025-04-04 15:28 | disposition home or self-care (01) ==
LOC: HO.HBST 14:52
PROVIDERS: PCP Internal Medicine; Visit Provider Counselor Mental Health
DX: F41.1 Generalized anxiety disorder (principal)
CPT/HCPCS: 90832

== ENCOUNTER 2025-04-05 14:56 | Outpatient (AMB) | payer OTHER, SELFPAY ==
--- NOTE | 2025-04-05 15:11 | A.OFFVIS_ITS ---
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 Presents for 1 week post op visit. Starting weight was 289 lbs. Operative weight was 245.8 lbs. Weight today is 236.6 lbs, representing a 52.4 lbs weight loss since the start of the program. BMI today of 36.? No complaints of nausea, emesis, abdominal pain or reflux, or constipation. Denies incisional issues or constitutional symptoms. Taking pantoprazole and carafate as prescribed. 2 episodes of nausea early postop, resolved with zofran. Last BM 2 days ago, doesn't feel constipated Current meal plan includes: Fairlife or Premier shakes. 1 shake (12oz) per day, will increase to 8oz 3x day per Dr. Mayra Chavez, Gatorade zero, and water. Approx 32oz per day Exercise routine includes: nothing yet PFSH Medical History BMI 39.0-39.9,adult Obesity Vitamin B1 deficiency Vitamin D deficiency DJD (degenerative joint disease) Hyperlipidemia Anxiety Depression Morbid obesity Surgical History History of esophagogastroduodenoscopy (EGD) Hx of tonsillectomy Family History Mother Prediabetes Hypothyroid Father Hypertension Hyperdactyly Heart problem Obesity Social History Household Members: Family Housing: House Are you a primary skin care therapist to a significant other at home: No Do you presently have visiting nurse or other home services: No Alcohol intake: current Alcohol intake frequency: a few times a month Patient Tobacco Use Status: Never used Tobacco Physical Exam Const General: cooperative, healthy appearing, comfortable and no acute distress Orientation/consciousness: patient oriented x3 GI Other: Abdomen is soft non-tender non-distended. 5 lap sites with gauze and Tegaderm CDI, which were removed. Steri-Strips underneath CDI. No surrounding erythema or drainage or S&S of infection. Neuro General: patient oriented x3 Assessment & Plan Assessment & Plan (1) S/P laparoscopic sleeve gastrectomy: Code(s): Z98.84 - Bariatric surgery status Category: Surgical Plan: Plan: - May shower tomorrow but no bath or submersion of abdomen in water. - Reviewed S&S of infection, incisional care - May start exercise tomorrow (or 1 week postop).? No abdominal exercises x 6 weeks. Discussed starting slowly - Abdominal binder for the next 2 weeks with activity or exercise. - Continue meal plan per Dr Nunez until next f/u - Reviewed pantoprazole and carafate dosing. - Reminded of the pace of drinking 2 mL/min or 1oz per 15 min. - Will be emailed link for post op video for review. 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 Given work note for light duty no lifting > 10 lbs. Follow up: 5 weeks
[2025-04-05 15:19] VITALS: BP 140/67; PULSE 105; TEMP 36.4; O2SAT 96; BMI 35.9
--- OUTSIDE RECORDS SUMMARY | 2025-04-05 17:55 | XMS_ITS | Clinical Summary ---
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
--- OUTSIDE RECORDS SUMMARY | 2025-04-05 17:55 | XMS_ITS | Clinical Summary ---
Author Organization [facility] Address [id number] [place] [id number] Care Team Providers Care It Systems Analyst Name Role Phone Unavailable Primary Care [...]
== END 2025-04-05 16:03 | disposition home or self-care (01) ==
LOC: HO.HBS 14:57
PROVIDERS: PCP Internal Medicine; Visit Provider Nurse Practitioner
DX: Z98.84 Bariatric surgery status (principal)
CPT/HCPCS: 99024